=== PATIENT | male | born 1990 | race Two or more races ===

== ENCOUNTER 2021-09-27 10:48 | Emergency (ER) | payer MEDICAID ==
[~2021-09-27] VITALS: Ht 170.2 cm; Wt 74.4 kg
[2021-09-27] MEDS ORDERED: FAMOTIDINE 20 MG TAB PO ONE (11:45)
[2021-09-27] MEDS ORDERED: ALUM & MAG HYDROX-SIMETH LIQ(MAALOX) 30 ML PO ONE (11:45)
[2021-09-27] MEDS ORDERED: ONDANSETRON ODT 4 MG TAB PO ONE (11:45)
[2021-09-27 12:27] LABS: Basophils # (auto) 0.1 10 ^3/uL (0-0.2); Basophils % (auto) 0.7 % (0.0-2.0); Eosinophils # (auto) 0.2 10 ^3/uL (0-0.8); Eosinophils % (auto) 2.4 % (0.0-7.0); Hematocrit 50.9 % (41.0-53.0); Hemoglobin 17.4 g/dL (13.5-17.5); Lymphocytes # (auto) 3.2 10 ^3/uL (0.4-5.4); Lymphocytes % (auto) 40.8 % (10.0-50.0); Mean Corpuscular Hemoglobin 29.4 pg (28.0-32.0); Mean Corpuscular Hgb Conc. 34.1 g/dL (32.0-36.0); Mean Corpuscular Volume 86.1 fL (80.0-100.0); Monocytes # (auto) 0.8 10 ^3/uL (0-1.3); Monocytes % (auto) 9.7 % (0.0-12.0); Neutrophils # (auto) 3.6 10 ^3/uL (1.6-8.6); Neutrophils % (auto) 46.4 % (37.0-80.0); Nucleated Red Blood Cells % 0.2 %; Red Blood Cells 5.91 10^6/uL (4.5-5.90); White Blood Cell 7.8 10^3/uL (4.4-10.8)
[2021-09-27 12:41] LABS: Albumin 3.8 g/dL (3.4-5.0); Calcium 8.9 mg/dL (8.5-10.1); Potassium 3.9 mmol/L (3.5-5.1)
[2021-09-27 12:44] LABS: BUN/Creatinine Ratio 8.2; Bilirubin, Total 1.7 mg/dL (0.2-1.0); Total Protein 8.2 g/dL (6.4-8.2)
[2021-09-27 14:35] VITALS: BP 110/70
== END 2021-09-27 14:51 | disposition home or self-care (01) ==
LOC: ER 10:48
DX: K29.70 Gastritis, unspecified, without bleeding (principal)
CPT/HCPCS: 36415; 71045; 80053; 83690; 85025; 93005; 99285; Q0162